=== PATIENT | female | born 1950 | race Caucasian/White ===

== ENCOUNTER 2017-11-18 15:16 | Inpatient (IN) | payer MEDICARE ==
[2017-11-18] MEDS ORDERED: Vancomycin(*) 1,500 MG in NS 0.9% 250 ML* 250 ML IVPB ONE (16:40)
--- NOTE | 2017-11-18 16:42 | ED ---
Lower Extremity - HPI Summary HPI Summary: This patient is a 67 year old F presenting to ED with a chief complaint of bilateral LE cellulitis since 11/10/17. The CC is described as intermittent burning and increased erythema when she left her house earlier today. The patient rates the pain 0/10 in severity. Symptoms aggravated by touch. Symptoms alleviated by nothing. Patient denies CP, SOB, and abdominal pain. The patient was given Bactrim (10 days) which did not alleviate her sx. She was also given Augmentin (10 days) which did help. She ended her rx last night and went back to her PCP, Dr. Kimball, today for renewal of Rx but she was told to go to the ED for abx via an IV. - History of Current Complaint Chief Complaint: EDExtremityLower Stated Complaint: CELLULITIS ON BOTH LEGS Time Seen by Provider: 11/18/17 16:12 Hx Obtained From: Patient Onset of Pain: Days Onset/Duration: Still Present Severity Currently: None Pain Intensity: 0 Pain Scale Used: 0-10 Numeric Timing: Constant, Lasting Days Location: Other - bilateral LE Character Of Pain: Burning Associated Signs And Symptoms: Positive: Swelling, Redness Aggravating Factor(s): Other - touch Alleviating Factor(s): Nothing - Allergies/Home Medications Allergies/Adverse Reactions: Allergies Allergy/AdvReac Type Severity Reaction Status Date / Time No Known Allergies Allergy Verified 11/21/15 14:34 Home Medications: Home Medications Gabapentin CAP(*) [Neurontin 100 mg CAP(*)] 100 mg PO TID 11/18/17 [History Confirmed 11/18/17] Meloxicam(NF) [Mobic(NF)] 15 mg PO DAILY MDD 15 mg 11/18/17 [History Confirmed 11/18/17] oxyCODONE SR TAB(*) [Oxycontin 20 mg (*)] 20 mg PO Q12HR PRN 11/18/17 [History Confirmed 11/18/17] PMH/Surg Hx/FS Hx/Imm Hx Endocrine/Hematology History: Reports: Hx Anticoagulant Therapy - Coumadin therapy, Hx Anemia Cardiovascular History: Denies: Hx Congestive Heart Failure Respiratory History: Reports: Hx Pulmonary Embolism GI History: Reports: Hx Gall Bladder Disease - Cholecystectomy, Other GI Disorders - VENTRAL HERNIA (REPAIRED), appendectomy History: Denies: Hx Renal Disease, Other Problems/Disorders Musculoskeletal History: Reports: Other Musculoskeletal History - R total knee replacement Denies: Hx Arthritis Sensory History: Reports: Hx Contacts or Glasses - to drive Opthamlomology History: Reports: Hx Contacts or Glasses - to drive - Cancer History Cancer Type, Location and Year: newly diagnosed uterine cancer Hx Chemotherapy: No Hx Radiation Therapy: Yes - HX STAGE 4 UTERINE CA 2015 - Surgical History Surgery Procedure, Year, and Place: Cholecystectomy. Appendectomy. VENTRAL HERNIA REPAIR x 2. 2010 - knee replacement Hx Anesthesia Reactions: No Infectious Disease History: No Infectious Disease History: Denies: Hx of Known/Suspected MRSA, Hx Shingles, Hx Tuberculosis, Hx Known/ Suspected VRE, Hx Known/Suspected VRSA, History Other Infectious Disease, Traveled Outside the [place] in Last 30 Days - Family History Known Family History: Positive: Cardiac Disease - Mother - Social History Alcohol Use: None Hx Substance Use: No Substance Use Type: Reports: None Hx Tobacco Use: No Smoking Status (MU): Never Smoked Tobacco Review of Systems Negative: Chest Pain Negative: Shortness Of Breath Negative: Abdominal Pain Positive: Edema - bilateral LE Positive: Other - cellulitis on bilateral LE, increased erythema since leaving her house today All Other Systems Reviewed And Are Negative: Yes Physical Exam - Summary Physical Exam Summary: Appearance: Morbid obesity, no pain distress Skin: warm, dry, excoriation of skin with redness Head/face: normal Eyes: EOMI, CASSI ENT: normal Neck: supple, non-tender Respiratory: CTA, breath sounds present Cardiovascular: RRR, pulses symmetrical Abdomen: non-tender, soft Bowel: present Musculoskeletal: strength/ROM intact, Bilateral pedal edema, mild tenderness on LE bilaterally, Hernia with some abrasion of the abdomen Neuro: normal, sensory motor intact, A&Ox3 Triage Information Reviewed: Yes Vital Signs On Initial Exam: Initial Vitals Temp Pulse Resp BP Pulse Ox 98.5 F 80 19 143/69 91 11/18/17 15:28 11/18/17 15:28 11/18/17 15:28 11/18/17 15:28 11/18/17 15:28 Vital Signs Reviewed: Yes Diagnostics - Vital Signs Vital Signs Temp Pulse Resp BP Pulse Ox 11/18/17 15:28 98.5 F 80 19 143/69 91 - Laboratory Result Diagrams: 11/18/17 17:14 Lab Statement: Any lab studies that have been ordered have been reviewed, and results considered in the medical decision making process. Lower Extremity Course/Dx - Course Assessment/Plan: This patient is a 67 year old F presenting to ED with a chief complaint of bilateral LE cellulitis since 11/10/17. Blood work/UA obtained. In the ED course, the patient was given Vancomycin, Motrin, and percocet. US refuses to take the LE venous doppler. The patient will be admitted to Dr. Weathers. Patient understands and agrees with this plan. - Diagnoses Differential Diagnosis/HQI/PQRI: Positive: Cellulitis - bilateral legs Provider Diagnoses: Bilateral lower leg cellulitis - Physician Notifications Discussed Care Of Patient With: Merline Weathers Time Discussed With Above Provider: 17:47 Instructed by Provider To: Other - Consulted Dr. Weathers who accepts the patient for admission. Discharge - Sign-Out/Discharge Documenting (check all that apply): Patient Departure - admit - Discharge Plan Condition: Stable Disposition: ADMITTED TO [facility] Referrals: Venancio Cesar MD [Primary Care Provider] - - Attestation Statements Document Initiated by Scribe: Yes Documenting Scribe: Malachi Dodson Provider For Whom Andreinaibe is Documenting (Include Credential): Van Whitman MD Scribe Attestation: Malachi Thrasher, scribed for Van Whitman MD on 11/18/17 at 5469.
[2017-11-18] MEDS ORDERED: Ibuprofen TAB* 800 MG PO ONE (17:25)
[2017-11-18] MEDS ORDERED: oxyCODONE/Acetamin 5/325 MG* TAB PO ONE (17:27)
[2017-11-18] MEDS ORDERED: oxyCODONE/Acetamin 5/325 MG* TAB ONE (17:29)
[2017-11-18 17:38] LABS: ABS Basophils 0.1 10^3/ul (0-0.2); ABS Eosinophils 0.1 10^3/ul (0-0.6); ABS Lymphocytes 1.3 10^3/ul (1.0-4.8); ABS Monocytes 0.6 10^3/ul (0-0.8); ABS Neutrophils 4.7 10^3/ul (1.5-7.7); ABS Nucleated RBC 0 10^3/ul; Eosinophil % 0.9 % (0-6); Hematocrit 39 % (35-47); Hemoglobin 12.5 g/dl (12.0-16.0); Lymphocyte % 19.6 % (25-47); Mean Corpuscular HGB Conc 32 g/dl (31-36); Mean Corpuscular Hemoglobin 31 pg (27-31); Mean Corpuscular Volume 97 fL (80-97); Mean Platelet Volume 6.6 um3 (7.4-10.4); Nucleated Red Blood Cells % 0; Platelet Count 282 10^3/ul (150-450); Red Blood Count 4.03 10^6/ul (4.00-5.40); Red Cell Distribution Width 18 % (10.5-15); White Blood Count 6.6 10^3/ul (3.5-10.8)
[2017-11-18 17:46] LABS: INR 0.98 (0.77-1.02)
[2017-11-18 18:00] LABS: EGFR Non-African American 100.3 (>60)
[2017-11-18] MEDS: oxyCODONE SR TAB(*) 20 MG TAB.SR PO PRN (20:47)
[2017-11-18] MEDS: ceFAZolin 1 GM in Dextrose (*) 1 GM/50 ML BAG IVPB SCH (20:47)
[2017-11-18] MEDS: Gabapentin CAP(*) 100 MG PO SCH (20:48)
[2017-11-18] MEDS: Heparin VIAL(*) 5000 UNITS/ML VIAL (FIVE THOUSAND) SUBCUT SCH (20:49)
[2017-11-18] MEDS ORDERED: HYDROmorphone INJ1* 1 MG/ML SYRINGE IV ONE (23:03)
--- NOTE | 2017-11-18 23:33 | HP ---
CC: Dr. Kimball * HISTORY AND PHYSICAL: DATE OF ADMISSION: 11/18/17 TIME OF EVALUATION: 6:30 p.m. PRIMARY CARE PROVIDER: Dr. Kimball. CHIEF COMPLAINT: "My doctor sent me for antibiotics." HISTORY OF PRESENT ILLNESS: Ms. Lynn is a 67-year-old lady with a past medical history of morbid obesity, PE after extensive abdominal surgery who was sent to the emergency room by her primary care provider due to worsening bilateral lower extremity cellulitis. The patient states that she was in her usual state of health until 3 weeks ago when she was referred to a tree surgeon helper. She states that when he cut her nails, he nicked her right third toe and she developed right lower extremity erythema. She states the next day she scratched her left leg and then developed erythema on that leg. She did not have any fever, but she did have some malaise and she was seen by her primary care provider and prescribed Bactrim. She states that she took it for a week with no significant improvement, so she returned for followup and was then prescribed Augmentin. She states that with Augmentin, she had less pain. The redness was subsiding and she felt she was improving. She developed some blisters with no purulence and states that she was taking great care of them at home keeping them clean and dry. She went for followup today with her primary care provider and she was under the impression she would get another prescription for another round of Augmentin and she felt the medication was working, but her primary care provider was concerned and sent her to the emergency room as she felt the patient required IV antibiotics. She denies any episodes of cellulitis in the past. As described above, there was no fever, no chills. Only some malaise in the beginning of her symptoms. There is no chest pain, palpitation, shortness of breath, nausea, vomiting, diarrhea, or urinary complaints. PAST MEDICAL HISTORY: 1. Morbid obesity with BMI of 48. 2. Complicated surgical history with an episode of small bowel obstruction in 2012 with exploratory laparotomy. 3. Ventral hernia repair. 4. Cholecystectomy. 5. Appendectomy. 6. Hospital course complicated by septic shock. 7. Respiratory failure. 8. Bilateral pulmonary embolus. 9. She had poor wound healing and required a wound VAC for the surgical wound. The patient denies history of hypertension, diabetes, or hyperlipidemia. MEDICATION LIST: 1. Gabapentin 100 mg p.o. t.i.d. 2. Meloxicam 15 mg p.o. daily. 3. OxyContin 10 mg p.o. q.12 hours p.r.n. pain. ALLERGIES: No known drug allergies. FAMILY HISTORY: Mother is alive and healthy. Father passed of heart failure. Sister had breast cancer. SOCIAL HISTORY: She denies tobacco, alcohol, or drug use. Surrogate decision maker is her daughter, Carmen Lynn, phone number is [phone]. REVIEW OF SYSTEMS: A 14-point review of systems was performed and all the pertinent negative and positive findings are in the HPI. PHYSICAL EXAMINATION GENERAL: The patient is a morbidly obese lady, sitting up in the ED stretcher, not in acute distress. VITAL SIGNS: Temperature 98.6, heart rate is 83, respiratory rate is 20, oxygen saturation 93% on room air, blood pressure 130/66. HEENT: Pupils are equal. Moist mucous membranes. CHEST: Breath sounds bilaterally with no added sounds, but exam is limited due to body habitus. CVS: Normal S1 and S2. Regular rate and rhythm. ABDOMEN: Morbidly obese. EXTREMITIES: The patient has significant bilateral lower extremity lymphedema with bilateral leg erythema, greater on the left leg. She has some blisters on the left leg. They appear to be drying at this time. Good pulses bilaterally. Her toenails also show onychomycosis. NEURO: She is alert, awake, oriented x3. Able to move all 4 extremities. LABORATORY AND IMAGING DATA: The patient had a CBC that showed WBC of 6.6, hemoglobin of 12.5, hematocrit of 39, platelets of 282 with 70% neutrophils. INR is 0.98. Chemistry showed a sodium of 139, potassium of 4.2, chloride of 102, bicarb of 31, BUN of 17, creatinine of 0.6, glucose of 84. Lactic acid of 1.1. Calcium of 9.2. LFTs were normal. The patient declined lower extremity Doppler in the emergency room, as she states she could not tolerate it due to pain. ASSESSMENT AND PLAN: Ms. Lynn is a 67-year-old lady with a past medical history of morbid obesity, postop pulmonary embolism, complex abdominal surgery for small bowel obstruction, and hernia repair complicated by wound requiring wound VAC in 2012 who presented to the emergency room, referred by her primary care provider due to failing outpatient treatment for bilateral lower extremity cellulitis. 1. Bilateral lower extremity cellulitis. The patient's infection is mildly purulent suggesting streptococcal etiology. She states that the lesions did not improve with Bactrim, but she saw some improvement with Augmentin. At this point, she is going to be admitted to the medical floor as she failed outpatient treatment and she will be started on cefazolin. Due to her size, I am going to give 1 g every 6 hours and request a consultation with Dr. Bautista. I will continue her usual pain medication. 2. DVT prophylaxis. The patient has a score of 7 on the DVT Prophylaxis Risk Assessment Guide and she will be started on subcutaneous heparin. SCDs are contraindicating in the setting of bilateral lower extremity cellulitis. 3. Code status is full. TIME SPENT: Approximately 50 minutes were spent with patient interview, medical records review, physical examination to complete this admission; more than half of this time was spent [id number] with the patient and coordination of care. [id number]/[facility] #: [id number] HEALTH SYSTEMKetty
[2017-11-19] MEDS ORDERED: HYDROmorphone INJ1* 1 MG/ML SYRINGE IV ONE (01:22)
[2017-11-19] MEDS ORDERED: HYDROmorphone INJ1* 1 MG/ML SYRINGE ONE (01:25)
[2017-11-19] MEDS: ceFAZolin 1 GM in Dextrose (*) 1 GM/50 ML BAG IVPB SCH ×4 (01:31→20:24)
[2017-11-19] MEDS: Heparin VIAL(*) 5000 UNITS/ML VIAL (FIVE THOUSAND) SUBCUT SCH ×3 (06:16→20:28)
[2017-11-19 07:47] LABS: ABS Basophils 0 10^3/ul (0-0.2); ABS Eosinophils 0.1 10^3/ul (0-0.6); ABS Monocytes 0.5 10^3/ul (0-0.8); ABS Neutrophils 4.5 10^3/ul (1.5-7.7); ABS Nucleated RBC 0 10^3/ul; Eosinophil % 1.8 % (0-6); Hematocrit 37 % (35-47); Hemoglobin 12.1 g/dl (12.0-16.0); Lymphocyte % 16.3 % (25-47); Mean Corpuscular HGB Conc 32 g/dl (31-36); Mean Corpuscular Hemoglobin 31 pg (27-31); Mean Corpuscular Volume 97 fL (80-97); Mean Platelet Volume 6.5 um3 (7.4-10.4); Nucleated Red Blood Cells % 0; Platelet Count 267 10^3/ul (150-450); Red Blood Count 3.86 10^6/ul (4.00-5.40); Red Cell Distribution Width 18 % (10.5-15); White Blood Count 6.2 10^3/ul (3.5-10.8)
[2017-11-19 08:09] LABS: EGFR Non-African American 96.6 (>60)
[2017-11-19] MEDS: Gabapentin CAP(*) 100 MG PO SCH ×3 (08:09→20:26)
[2017-11-19] MEDS: oxyCODONE SR TAB(*) 20 MG TAB.SR PO PRN ×2 (08:14→20:27)
[2017-11-19] MEDS: MELOXICAM 15 MG PO SCH ×2 (13:29→14:08)
[2017-11-19] MEDS ORDERED: Gabapentin CAP(*) 100 MG PO ONE (15:05)
[2017-11-19] MEDS: Acetaminophen TAB* 325 MG PO PRN ×2 (15:51→23:13)
--- NOTE | 2017-11-19 15:56 | PN ---
Subjective Date of Service: 11/19/17 Interval History: HOSPITALIST PROGRESS NOTE Patient seen and examined at bedside. Care reviewed and d/w Adriana Price RN. She feels a little better today. Bilateral LE erythema is less intense, LLE weeping is improving, but she states the burning pain is still severe. Family History: Unchanged from Admission Social History: Unchanged from Admission Past Medical History: Unchanged from Admission Objective Active Medications: Acetaminophen (Tylenol Tab*) 650 mg PO Q6H PRN PRN Reason: pain/fever Gabapentin (Neurontin Cap(*)) 200 mg PO TID [facility] Heparin Sodium (Porcine) (Heparin Vial(*)) 5,000 units SUBCUT Q8HR [facility] Last Admin: 11/19/17 14:07 Dose: 5,000 units Cefazolin Sodium/Dextrose (Kefzol 1 Gm In Dextrose Duplex (*)) 1 gm in 50 mls @ 200 mls/hr IVPB Q6H [facility] Last Admin: 11/19/17 14:06 Dose: 200 mls/hr Meloxicam (Mobic(Nf)) 15 mg PO DAILY [facility] Last Admin: 11/19/17 14:08 Dose: 15 mg Oxycodone HCl (Oxycontin(*)) 20 mg PO Q12HR PRN PRN Reason: PAIN - UNCONTROLLED Last Admin: 11/19/17 08:14 Dose: 20 mg Vital Signs - 8 hr 11/19/17 11/19/17 11/19/17 08:00 08:09 08:14 Temperature Pulse Rate Respiratory 22 22 22 Rate Blood Pressure (mmHg) O2 Sat by Pulse Oximetry 11/19/17 11/19/17 11/19/17 10:09 12:29 14:06 Temperature 98.4 F Pulse Rate 79 Respiratory 19 18 18 Rate Blood Pressure 142/60 (mmHg) O2 Sat by Pulse 91 Oximetry Oxygen Devices in Use Now: None Appearance: Morbid obese lady sitting up in bed in NAD Eyes: No Scleral Icterus Ears/Nose/Mouth/Throat: Mucous Membranes Moist Neck: Trachea Midline Respiratory: Symmetrical Chest Expansion and Respiratory Effort, Clear to Auscultation Cardiovascular: RRR - Normal S1 and S2 Extremities: - - Bilateral LE erythema from knee to ankles, L>R, with blisters and clear drainage from the left leg. Toenails - onychomycosis Neurological: Alert and Oriented x 3, NL Muscle Strength and Tone Result Diagrams: 11/19/17 07:25 11/19/17 07:25 Assess/Plan/Problems-Billing Assessment: Mrs Lynn is a 67yo F with PMH of morbid obesity with a BMI of 60, SBO in 2013 requiring ex lap with ventral hernia repair, cholecystectomy, appendectomy , complicated by septic shock, respiratory failure, PE, abdominal wound; who presented with bilateral LE cellulitis failed outpatient treatment. - Patient Problems (1) Bilateral lower leg cellulitis Comment: - Failed outpatient treatment with Bactrim and Augmentin. - Seems to be responding to Cefazolin. - ID consult requested. - Suspect streptococcal infection. (2) DVT prophylaxis Comment: - SQ heparin. (3) Full code status Status and Disposition: Inpatient.
--- NOTE | 2017-11-19 20:42 | CONS ---
CONSULTATION REPORT: DATE OF CONSULT: 11/19/17 REQUESTING PHYSICIAN: Dr. Gallardo. CONSULTING SERVICE: Infectious Disease. REASON FOR CONSULT: Cellulitis. IMPRESSION: 1. Left leg cellulitis and probably a touch of it on the right as well in the setting of lymphedema though this does indeed appear to be cellulitis. There is some superficial bulla formation in the left posterior leg, most likely streptococcal. 2. Super morbid obesity. RECOMMENDATION: Agree with cefazolin 1 g IV every 6 hours. Elevation of the legs when she is in bed and eventually, we will switch her over to Keflex 500 mg 3 times a day to finish a 10-day course when she has significantly turned the corner. HISTORY OF PRESENT ILLNESS: This is a 67-year-old woman with obesity, recent left leg cellulitis developed and then she developed some redness on the right leg. She was taking Bactrim as an outpatient, then Augmentin, and was starting to have some improvement, then had worsening pain, saw Dr. Kimball, who recommended she come in to the ER yesterday. She did that, she was started on Ancef by Dr. Gallardo. She thinks the redness has faded a little bit this morning. There is still some swelling. She had some posterior left leg pain overnight. A wound culture on the left leg was taken. The Gram stain shows epithelial cells, no neutrophils or organisms. The culture is pending. She has had no fever here. PAST MEDICAL HISTORY: 1. Super morbid obesity. 2. History of pulmonary embolism. 3. Small bowel obstruction in 2012, status post exploratory laparotomy. 4. Status post ventral hernia repair. 5. Status post cholecystectomy. 6. Status post appendectomy. MEDICATIONS: 1. Ancef 1 g IV every 6 hours. 2. Tylenol. 3. Gabapentin. 4. Heparin subcutaneous injection. 5. Meloxicam. 6. Oxycodone. ALLERGIES: No known drug allergies. FAMILY HISTORY: No recurrent infections. SOCIAL HISTORY: She lives in [place]. She is a nonsmoker. No injection drugs. REVIEW OF SYSTEMS: All negative to a 14-point review of systems except as noted above in the history of present illness. PHYSICAL EXAM: Vital Signs: Temperature is 37, heart rate 90, respiratory rate 20, blood pressure 120/40, oxygen saturation 94% on room air. In general, she is awake and not in distress. Neurologic: She is oriented x3. Follows all commands. HEENT: There is no conjunctival hemorrhage. Oropharynx is without lesions. Neck is supple without mass. Heart has regular rate and rhythm without murmurs, rubs, or gallops. Lungs are clear to auscultation bilaterally. Abdomen: Soft, nontender. There are bowel sounds present. Skin : Left lower extremity, there is diffuse erythema, which is nonblanching. There is some posterior sloughing and superficial bulla. Right anterior lateral leg, there is a patch of erythema. There is no fluctuance or crepitus. Musculoskeletal: There is no spine tenderness to palpation. LABORATORY DATA: White blood cell count 6, hemoglobin 12, platelets 267. Creatinine is 0.6. Please see impressions and recommendations as outlined above. Thanks for asking me to see Ms. Lynn in consultation. [id number]/[facility] #: [id number] MTDD
[2017-11-20] MEDS: ceFAZolin 1 GM in Dextrose (*) 1 GM/50 ML BAG IVPB SCH ×4 (02:18→20:00)
[2017-11-20] MEDS: Heparin VIAL(*) 5000 UNITS/ML VIAL (FIVE THOUSAND) SUBCUT SCH ×3 (05:58→21:02)
[2017-11-20] MEDS: Gabapentin CAP(*) 100 MG PO SCH ×3 (08:02→20:01)
[2017-11-20] MEDS: MELOXICAM 15 MG PO SCH (08:14)
[2017-11-20] MEDS: oxyCODONE SR TAB(*) 20 MG TAB.SR PO PRN (12:08)
--- NOTE | 2017-11-20 13:48 | PN ---
Subjective Date of Service: 11/20/17 Interval History: HOSPITALIST PROGRESS NOTE Patient seen and examined at bedside. She feels better today, pain is better controlled. LE erythema is improving, but RLE is still "weepy". Family History: Unchanged from Admission Social History: Unchanged from Admission Past Medical History: Unchanged from Admission Objective Active Medications: Acetaminophen (Tylenol Tab*) 650 mg PO Q6H PRN PRN Reason: pain/fever Last Admin: 11/19/17 23:13 Dose: 650 mg Gabapentin (Neurontin Cap(*)) 200 mg PO TID [facility] Last Admin: 11/20/17 08:02 Dose: 200 mg Heparin Sodium (Porcine) (Heparin Vial(*)) 5,000 units SUBCUT Q8HR [facility] Last Admin: 11/20/17 05:58 Dose: 5,000 units Cefazolin Sodium/Dextrose (Kefzol 1 Gm In Dextrose Duplex (*)) 1 gm in 50 mls @ 200 mls/hr IVPB Q6H [facility] Last Admin: 11/20/17 08:01 Dose: 200 mls/hr Meloxicam (Mobic(Nf)) 15 mg PO DAILY [facility] Last Admin: 11/20/17 08:14 Dose: Not Given Oxycodone HCl (Oxycontin(*)) 20 mg PO Q12HR PRN PRN Reason: PAIN - UNCONTROLLED Last Admin: 11/20/17 12:08 Dose: 20 mg Vital Signs - 8 hr 11/20/17 11/20/17 11/20/17 07:50 08:00 08:02 Temperature 97.7 F Pulse Rate 74 Respiratory 20 18 16 Rate Blood Pressure 126/62 (mmHg) O2 Sat by Pulse 93 Oximetry 11/20/17 11/20/17 11/20/17 11:25 12:08 12:48 Temperature 97.9 F Pulse Rate 73 Respiratory 16 18 18 Rate Blood Pressure 143/70 (mmHg) O2 Sat by Pulse 90 Oximetry Oxygen Devices in Use Now: None Appearance: Pleasant morbid obese lady lying in bed in NAD. Eyes: No Scleral Icterus Ears/Nose/Mouth/Throat: Mucous Membranes Moist Extremities: - - Bilateral LE erythema is less intense, RLE is much improved, LLE still has some blisters with drainage of clear fluid Neurological: Alert and Oriented x 3, NL Muscle Strength and Tone Result Diagrams: 11/19/17 07:25 11/19/17 07:25 Assess/Plan/Problems-Billing Assessment: Mrs Lynn is a 67yo F with PMH of morbid obesity with a BMI of 60, SBO in 2013 requiring ex lap with ventral hernia repair, cholecystectomy, appendectomy , complicated by septic shock, respiratory failure, PE, abdominal wound; who presented with bilateral LE cellulitis failed outpatient treatment. - Patient Problems (1) Bilateral lower leg cellulitis Comment: - Failed outpatient treatment with Bactrim and Augmentin. - Seems to be responding to Cefazolin. - ID consult appreciated. - Suspect streptococcal infection. (2) DVT prophylaxis Comment: - SQ heparin. (3) Full code status Status and Disposition: Inpatient.
--- NOTE | 2017-11-20 17:00 | CONS ---
CONSULTATION REPORT: DATE OF CONSULT: 11/20/17 ATTENDING PHYSICIAN: Dr. Gallardo. CONSULTING PHYSICIAN: Dr. Ren Harrison. REASON FOR CONSULT: Question of borderline personality disorder. 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 The question was raised whether perhaps the patient has a personality disorder or whether she would benefit from mood stabilizer therapy to improve mood and interpersonal functioning. The story is that on the day prior to consultation, the patient revealed to staff that she had several tablets of the nonsteroidal anti-inflammatory, meloxicam in her purse. Per hospital policy, her nurse requested that the medications be taken to pharmacy to be verified. The patient refused to adhere to this request and started getting upset. At one point, the patient claims that she was threatened with law enforcement interaction and became very upset. A series of staff members attempted to intervene to get her to calm down. At one point, the patient's friend, a woman named Arline, who was present, gathered the pills and took them to the patient' s home. On the date of my evaluation, I spoke with the currently assigned nursing staff, who indicate that Ms. Lynn has been calm and cooperative throughout today. She has been adhering with treatment as recommended. When I meet with the patient, she is similarly calm and cooperative, but is quite upset about her interaction with staff 1 day prior. She feels that it was not the staff's business what pills she had in her purse and she denies the risks associated with this, such as the possibility that another patient may receive them mistakenly. I do see some evidence of splitting on her part, given the fact that she has very negative things to say about nursing staff the day prior whereas she appears overly complimentary to her providers today. I did screen the patient for primary mental illness and she denies symptoms of depression, figueroa, PTSD, or psychosis. Mostly, the patient feels that she was disrespected , but seems to have little insight into the way that she was behaving towards staff. PAST PSYCHIATRIC HISTORY: The patient denies any prior history of psychiatric hospitalization. She denies any history of suicidality, any history of violence towards others. She denies any history of traumatic brain injury. She denies any history of abuse, neglect, or victimization from trauma. SUBSTANCE ABUSE HISTORY: The patient denies history of tobacco, alcohol, or illicit drug use and has never been to rehab. PAST MEDICAL HISTORY: Significant for morbid obesity, history of small bowel obstruction in 2013 with exploratory laparotomy, ventral hernia repair, cholecystectomy, appendectomy, history of septic shock, history of respiratory failure, bilateral pulmonary embolus. MEDICATIONS: Outpatient medications include: 1. Gabapentin 100 mg 3 times daily. 2. Meloxicam 15 mg p.o. daily. 3. OxyContin 10 mg every 12 hours as a p.r.n. for pain. ALLERGIES: She has no known drug allergies. FAMILY HISTORY: The patient denies any history of mental illness or suicide in her family. SOCIAL HISTORY: The patient was born and raised in the [facility] near the [facility]. She moved to the [facility] approximately 20 years ago following her divorce with her ex- and has never been remarried. She does have 3 children, 2 of which who live locally and 1 of whom lives in [place], [place]. She states that she is close with her children. Currently, she is living alone in an apartment in [place], [place]. 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 The patient was never in the . She denies having any history of legal problems. She is spiritual and jain, identifying as Tenriism. MENTAL STATUS EXAM: The patient is an extremely obese white female, who is dressed in a large flowing patient gown, sitting at the side of her bed close to her lunch tray. She is calm, cooperative, makes good eye contact. Speech has a normal rate, tone, and volume with the exception of elevating her voice at times when discussing emotional material. Mood would appear to be euthymic with a full to expansive affect. Thought process is linear and goal directed. Thought content is significant for her upset over the way that she feels she was treated 1 day prior. She denies suicidal or homicidal ideations. She denies auditory or visual hallucinations. Insight and judgment appear to be fair given her willingness to receive treatment for her medical issues. Cognitively, she is awake and alert with what would appear to be an average intellect. DIAGNOSES: Columbia I: Deferred. Columbia II: Deferred. 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 The primary team is wondering whether the patient may have an undiagnosed personality disorder or whether she may benefit from mood stabilizer treatment. At this time, I do not feel comfortable diagnosing the patient with a character disorder. These disorders tend to be multifactorial and based on multiple dimensions of personality, as seen in multiple settings. We typically make such diagnoses longitudinally after getting to know a patient. I certainly see evidence of splitting, given the fact that she deems her current nurse as all good, whereas her nurse from yesterday was seen as all bad. This is characteristic of borderline personality pathology. Nonetheless, I do not see any rationale for diagnosis or medications at this time. I think it would benefit the patient to conclude her inpatient treatment when it is medically safe to do so and be discharged back to the outpatient setting. Psychiatry is signing off at this time; however, we can certainly be reconsulted in the event of any significant change in the patient's presentation. Thank you for the interesting consult. [id number]/SHINE #: [id number] EDWARDO
[2017-11-20] MEDS: Acetaminophen TAB* 325 MG PO PRN (20:01)
[2017-11-21] MEDS: ceFAZolin 1 GM in Dextrose (*) 1 GM/50 ML BAG IVPB SCH ×2 (01:35→08:11)
[2017-11-21] MEDS: Heparin VIAL(*) 5000 UNITS/ML VIAL (FIVE THOUSAND) SUBCUT SCH (05:43)
[2017-11-21 08:01] VITALS: BP 140/67
[2017-11-21] MEDS: oxyCODONE SR TAB(*) 20 MG TAB.SR PO PRN (08:09)
[2017-11-21] MEDS: Gabapentin CAP(*) 100 MG PO SCH (08:10)
[2017-11-21] MEDS: MELOXICAM 15 MG PO SCH (08:18)
[2017-11-21] MEDS ORDERED: Pneumococcal *Vac Polyvalent 0.5 ML VIAL IM ONE (09:00)
[2017-11-21] MEDS ORDERED: Cephalexin CAP* 500 MG PO ONE (11:35)
--- NOTE | 2017-11-22 23:50 | DS ---
CC: Dr. Kimball. * DISCHARGE SUMMARY: DATE OF ADMISSION: 11/18/17 DATE OF DISCHARGE: 11/21/17 PRIMARY CARE PROVIDER: Dr. Kimball. DISCHARGE DIAGNOSES: 1. Bilateral lower extremity cellulitis, failed outpatient treatment, likely streptococcal infection. 2. Bilateral lower extremity lymphedema. 3. Hypoxia, likely secondary to obstructive sleep apnea and obesity hypoventilation syndrome. 4. Morbid obesity with a BMI of 60. SECONDARY DIAGNOSES: 1. Complicated surgical history with an episode of small bowel obstruction in 2012 requiring exploratory laparotomy. 2. Ventral hernia repair. 3. Cholecystectomy. 4. Appendectomy complicated by septic shock. 5. Respiratory failure. 6. Pulmonary embolism. 7. Poor wound healing requiring wound VAC. MEDICATION LIST: 1. Oxycodone SR 10 mg p.o. q.12 hours p.r.n. pain. 2. Meloxicam 15 mg p.o. daily. 3. Gabapentin 100 mg p.o. t.i.d. 4. Hydrocortisone 1% cream topical b.i.d. to left hand rash. 5. Cephalexin 500 mg p.o. q.8 hours for 14 days. HOSPITAL COURSE: Mrs. Lynn is a 67-year-old lady with a past medical history as stated above that presents to the emergency room after failing outpatient therapy for bilateral lower extremity cellulitis. The patient states that she had developed bilateral lower extremity edema and erythema, was seen by her primary care provider and prescribed initially Bactrim followed by Augmentin with no significant improvement and she was referred to the emergency room for further evaluation. For details about her presentation, I refer you to her history and physical. The patient was started on cefazolin and topical care with daily dressing changes of Vaseline gauze and dry gauze and she had significant improvement on her lesions. She was seen in consultation by Infectious Disease, Dr. Bautista who recommended continuation of treatment with oral cephalexin as outpatient. I believe the patient would also benefit of evaluation by Lymphedema Clinic. The patient was also noted to have periods of apnea while napping. She had an overnight oximetry that showed continuos period of 12 minutes with saturation less than 89% She is being discharged home with oxygen 2 L per minute at night but she would benefit of further sleep studies. She states that in the past she could not tolerate CPAP but she may be a candidate for nasal CPAP. I believe her hypoxia is multifactorial in the setting of morbid obesity with the BMI of 60 and likely a combination of the obstructive sleep apnea and obesity hypoventilation syndrome. DIET: Regular diet. ACTIVITY: As tolerated. DISPOSITION: To home. STATUS WHILE IN THE HOSPITAL: Inpatient. Please keep in mind this is a summarized version of this patient's hospital stay. If you need more information, please feel free to call me at [phone] or please obtain full medical records. TIME SPENT: Approximately 45 minutes were spent to complete this discharge. [id number]/CPS #: [id number] EDWARDO
== END 2017-11-21 13:45 | disposition home or self-care (01) | DRG 603 ==
LOC: ED 15:16 → MED 18:53
PROVIDERS: ADMIT Internal Medicine; ATTEND Internal Medicine
DX: L03.116 Cellulitis of left lower limb (principal); Z68.44 Body mass index [BMI] 60.0-69.9, adult; E66.01 Morbid (severe) obesity due to excess calories; L03.115 Cellulitis of right lower limb; B96.5 Pseudomonas (aeruginosa) (mallei) (pseudomallei) as the cause of diseases classified elsewhere; B35.1 Tinea unguium; Z86.711 Personal history of pulmonary embolism; Z79.01 Long term (current) use of anticoagulants; Z79.1 Long term (current) use of non-steroidal anti-inflammatories (NSAID); Z79.891 Long term (current) use of opiate analgesic; Z79.899 Other long term (current) drug therapy; Z82.49 Family history of ischemic heart disease and other diseases of the circulatory system; Z80.3 Family history of malignant neoplasm of breast
CPT/HCPCS: 36415; 80048; 80053; 83605; 85025; 85610; 85730; 87040; 87070; 87077; 87186; 87205; 90732; 94760; 99285; A9270-GY; J0690; J1170; J1644; J3370

== ENCOUNTER 2018-06-11 11:25 | Inpatient (IN) | payer MEDICARE ==
--- NOTE | 2018-06-11 13:11 | ED ---
Complex/Multi-Sys Presentation - HPI Summary HPI Summary: Patient is a 67 y/o F presenting to ED with complaints of cellulitis of both legs. Provider in room at 1301. Patient had previously been admitted to ED for cellulitis, was given IV therapy. Patient tested positive for Pseudomonas Aeruginosa Corynebacterium Urealyticum at the time. Patient claims that cellulitis took 3 months to heal. At present, patient presents with cellulitis of both legs with left being worse. Patient states that, two days ago, she accidentally backed up into her cat tower and then stumbled forward and struck her shins against her walker, injuring them. Patient called pharmacist at [facility], pharmacist recommended that the patient try New-Skin for her legs. Patient applied the New- Skin to her legs and states she experienced a "chemical burn" and states that her legs "burn like the devil". Patient reports left leg has been weeping at the back. She reports weeping began two days ago when she used New-Skin spray. Patient reports pain and burning, noting that Sx have worsened since onset. Patient took Tylenol at 0400 today, 06/11/18, reports not having taken any of her other medications this morning as she was busy trying to arrange hospital transport. She also reports lower back pain and dysuria. Headache, dizziness, chest pain, SOB, fever, cough , abdominal pain, N/V/D, SI/HI are all denied. No PMHx of diabetes, SD. PMHx of restless leg syndrome, DVT around 15 years ago , no PE reported. Patient takes ASA daily, not on blood thinners. Patient claims that she has hairline fracture in right foot, patient is walking with a walker as a result. She reports no pain in right foot in the room. Patient reports that she was diagnosed with hairline fracture 8-10 months ago. On triage , pain is rated 10/10. Nothing is noted to aggravate Sx. Home medications and allergies are reviewed. - History Of Current Complaint Chief Complaint: EDRashSkinAbscess Hx Obtained From: Patient Onset/Duration: Lasting Days - two days, Still Present, Worse Since Timing: Constant, Days - two days Severity Currently: Severe Location: Pain At: - legs bilaterally Aggravating Factor(s): nothing Alleviating Factor(s): nothing Associated Signs And Symptoms: Positive: Back Pain - lower, Dysuria, Other - cellulitis bilateral at legs, no HI/SI. Negative: Dizziness, Headache, SOB, Cough, Chest Pain, Nausea, Vomiting, Diarrhea, Abdominal Pain, Fever - Allergies/Home Medications Allergies/Adverse Reactions: Allergies Allergy/AdvReac Type Severity Reaction Status Date / Time No Known Allergies Allergy Verified 06/11/18 11:32 PMH/Surg Hx/FS Hx/Imm Hx Endocrine/Hematology History: Reports: Hx Anticoagulant Therapy - Coumadin therapy, Hx Anemia Cardiovascular History: Denies: Hx Congestive Heart Failure Respiratory History: Reports: Hx Pulmonary Embolism GI History: Reports: Hx Gall Bladder Disease - Cholecystectomy, Other GI Disorders - VENTRAL HERNIA (REPAIRED), appendectomy History: Denies: Hx Renal Disease, Other Problems/Disorders Musculoskeletal History: Reports: Other Musculoskeletal History - R total knee replacement Denies: Hx Arthritis Sensory History: Reports: Hx Contacts or Glasses Denies: Hx Hearing Aid Opthamlomology History: Reports: Hx Contacts or Glasses - Cancer History Cancer Type, Location and Year: newly diagnosed uterine cancer Hx Chemotherapy: No Hx Radiation Therapy: Yes - HX STAGE 4 UTERINE CA 2015 - Surgical History Surgery Procedure, Year, and Place: Cholecystectomy. Appendectomy. VENTRAL HERNIA REPAIR x 2. 2010 - knee replacement Hx Anesthesia Reactions: No Infectious Disease History: No Infectious Disease History: Denies: Hx of Known/Suspected MRSA, Hx Shingles, Hx Tuberculosis, Hx Known/ Suspected VRE, Hx Known/Suspected VRSA, History Other Infectious Disease, Traveled Outside the [place] in Last 30 Days - Family History Known Family History: Positive: Cardiac Disease - Mother - Social History Alcohol Use: Rare Hx Substance Use: No Substance Use Type: Reports: None Hx Tobacco Use: No Smoking Status (MU): Never Smoked Tobacco Review of Systems Negative: Fever Negative: Chest Pain Negative: Shortness Of Breath, Cough Negative: Abdominal Pain, Vomiting, Diarrhea, Nausea Positive: dysuria Musculoskeletal: Other - POSITIVE - LOWER BACK PAIN Skin: Other - POSITIVE - CELLULITIS OF BOTH LEGS Neurological: Other - NEGATIVE - DIZZINESS Negative: Headache Psychological: Other - NEGATIVE - SI/HI All Other Systems Reviewed And Are Negative: Yes Physical Exam - Summary Physical Exam Summary: Appearance: Ill-appearing, severe pain distress, well-nourished Skin: Warm, color reflects adequate perfusion, dry; patient has chronic appearing redness at legs from toes to knees bilaterally, acute on chronic redness, left worse than right, 2 cm open area at left posterior ankle Head: Normal Head/Face inspection, atraumatic Eyes: Conjunctiva clear ENT: Normal inspection Neck: Supple, no nodes, no JVD Respiratory: Lungs clear, normal breath sounds, no respiratory distress Cardio: RRR, No murmur, pulses normal, brisk capillary refill Abdomen: Soft, nontender Bowel sounds: Present Musculoskeletal: Strength Intact/ROM intact, no calf tenderness, no edema. Psychological: Normal Neuro: Alert, muscle tone normal, no focal deficit Triage Information Reviewed: Yes Vital Signs On Initial Exam: Initial Vitals Temp Pulse Resp BP Pulse Ox 99.3 F 87 16 149/90 93 06/11/18 11:28 06/11/18 11:28 06/11/18 11:28 06/11/18 11:28 06/11/18 11:28 Vital Signs Reviewed: Yes Diagnostics - Vital Signs Vital Signs Temp Pulse Resp BP Pulse Ox 06/11/18 11:28 99.3 F 87 16 149/90 93 - Laboratory Result Diagrams: 06/11/18 13:55 06/11/18 13:57 Lab Statement: Any lab studies that have been ordered have been reviewed, and results considered in the medical decision making process. Re-Evaluation - Re-Evaluation First Eval Re-Evaluation Time: 15:25 Comment: Patient has refused US, patient to receive US in the future when patient is more comfortable. Complex Multi-Symp Course/Dx Course Of Treatment: Patient is a 67 y/o F presenting to ED with complaints of cellulitis of both legs. Provider in room at 1301. Patient had previously been admitted to ED 11/18/17 for cellulitis, was given IV therapy. Patient tested positive for Pseudomonas Aeruginosa Corynebacterium Urealyticum at the time. Patient claims that cellulitis took 3 months to heal. At present, patient presents with cellulitis of both legs with left being worse. Patient states that, two days ago, she accidentally backed up into her cat tower and then stumbled forward and struck her shins against her walker, injuring them. Patient called pharmacist at [facility], pharmacist recommended that the patient try New-Skin for her legs. Patient applied the New-Skin to her legs and states she experienced a "chemical burn" and states that her legs "burn like the devil". Patient reports left leg has been weeping at the back. She reports weeping began two days ago when she used New-Skin spray. Patient reports pain and burning, noting that Sx have worsened since onset. Patient took Tylenol at 0400 today, 06/11/18, reports not having taken any of her other medications this morning as she was busy trying to arrange hospital transport. She also reports lower back pain and dysuria. Headache, dizziness, chest pain, SOB, fever, cough , abdominal pain, N/V/D, SI/HI are all denied. No PMHx of diabetes, SD. PMHx of restless leg syndrome, DVT around 15 years ago, no PE reported. Patient takes ASA daily, not on blood thinners. Patient claims that she has hairline fracture in right foot, patient is walking with a walker as a result. She reports no pain in right foot in the room. Patient reports that she was diagnosed with hairline fracture 8-10 months ago. Patient has severe pain distress, is ill-appearing. Patient has chronic appearing redness at legs from toes to knees bilaterally, acute on chronic redness, left worse than right, 2 cm open area at left posterior ankle. Blood cultures obtained. Labs showed RDW 16, MPV 6.5, BUN/creatinine ratio 34.6, alk phos 109, CRP 17.41, albumin/ globulin ratio 0.9. UA was negative. During ED course, patient received oxycotin 20 mg PO ONCE ONE, Mobic 15 mg PO ONCE ONE, dilaudid 1 mg IV ED ONCE ONE, Neurontin 100 mg PO ONCE ONE. Patient's case was discussed with Dr. Weathers at 1530, Dr. Weathers accepts for admission. Patient is agreeable with this. - Diagnoses Provider Diagnoses: Cellulitis of both lower extremities, Wound of left leg, Dysuria, Morbidly obese - Physician Notifications Discussed Care Of Patient With: Merline Weathers Time Discussed With Above Provider: 15:30 Instructed by Provider To: Other - Patient's case was discussed with Dr. Weathers at 1530, Dr. Weathers accepts for admission. Discharge - Sign-Out/Discharge Documenting (check all that apply): Patient Departure - admit All imaging exams completed and their final reports reviewed: No Studies Patient Received Moderate/Deep Sedation with Procedure: No - Discharge Plan Condition: Good Disposition: ADMITTED TO [facility] - Attestation Statements Document Initiated by Scribe: Yes Documenting Scribe: BERNA TSE Provider For Whom Scribe is Documenting (Include Credential): JONATHAN MEDEIROS MD Scribe Attestation: BERNA Thrasher, scribed for JONATHAN MEDEIROS MD on 06/12/18 at 0135. Status of Scribe Document: Ready
[2018-06-11] MEDS ORDERED: oxyCODONE SR TAB(*) 20 MG TAB.SR PO ONE (13:13)
[2018-06-11] MEDS ORDERED: Gabapentin CAP(*) 100 MG PO ONE (13:15)
[2018-06-11 13:48] LABS: Urine Appearance Clear; Urine Bilirubin Negative (Negative); Urine Blood Negative (Negative); Urine Color Yellow; Urine Glucose Negative (Negative); Urine Ketones Negative (Negative); Urine Nitrite Negative (Negative); Urine Protein Negative (Negative); Urine Specific Gravity 1.033 (1.010-1.030); Urine Urobilinogen Negative (Negative)
[2018-06-11 14:14] LABS: ABS Basophils 0 10^3/ul (0-0.2); ABS Eosinophils 0 10^3/ul (0-0.6); ABS Lymphocytes 1.4 10^3/ul (1.0-4.8); ABS Monocytes 0.5 10^3/ul (0-0.8); ABS Neutrophils 5.4 10^3/ul (1.5-7.7); ABS Nucleated RBC 0 10^3/ul; Eosinophil % 0.6 %; Hematocrit 38 % (33-41); Hemoglobin 12.4 g/dL (12.0-16.0); Lymphocyte % 18.6 %; Mean Corpuscular HGB Conc 33 g/dL (31-36); Mean Corpuscular Hemoglobin 30 pg (27-31); Mean Corpuscular Volume 91 fL (80-97); Mean Platelet Volume 6.5 fL (7.4-10.4); Nucleated Red Blood Cells % 0; Platelet Count 295 10^3/uL (150-450); Red Blood Count 4.16 10^6 /uL (3.70-4.87); Red Cell Distribution Width 16 % (10.5-15); White Blood Count 7.3 10^3/uL (3.5-10.8)
[2018-06-11 14:21] LABS: INR 1.02 (0.77-1.02)
[2018-06-11 14:30] LABS: Albumin 3.5 g/dL (3.2-5.2); Albumin/Globulin Ratio 0.9 (1-3); BUN/Creatinine Ratio 34.6 (8-20); C Reactive Protein 17.41 mg/L (<8.01); Calcium 8.9 mg/dL (8.6-10.3); EGFR African American 143.2 (>60); EGFR Non-African American 118.3 (>60); Globulin 3.9 g/dL (2-4); Potassium 4.2 mmol/L (3.5-5.0); Total Bilirubin 0.3 mg/dL (0.2-1.0); Total Protein 7.4 g/dL (6.4-8.9)
[2018-06-11] MEDS ORDERED: HYDROmorphone INJ1* 1 MG/ML SYRINGE IV ONE (15:35)
[2018-06-11] MEDS ORDERED: Meloxicam(NF) 7.5 MG TAB PO ONE (16:00)
[2018-06-11] MEDS ORDERED: Ondansetron INJ* 2 MG/ML VIAL IV PRN (16:15)
[2018-06-11] MEDS ORDERED: oxyCODONE SR TAB(*) 20 MG TAB.SR PO PRN (16:29)
[2018-06-11] MEDS ORDERED: Clindamycin CAP* 150 MG PO SCH (18:00)
[2018-06-11] MEDS: HYDROmorphone INJ1* 1 MG/ML SYRINGE IV SLOW PU PRN (18:28)
[2018-06-11] MEDS: Acetaminophen TAB* 325 MG PO PRN (18:34)
[2018-06-11] MEDS: Enoxaparin(*) 40 MG/0.4 ML SYR SUBCUT SCH (18:34)
--- NOTE | 2018-06-11 18:35 | HP ---
CC: Dr. Kimball; Dr. Suh * ADMISSION HISTORY AND PHYSICAL: DATE OF ADMISSION: 06/11/18 PRIMARY CARE PROVIDER: Dr. Kimball, but is being transferred to Dr. Suh. ATTENDING PHYSICIAN: Dr. Merline Gallardo.* (DICTATED BY ENIO REHMAN) CHIEF COMPLAINT: Left lower extremity pain, swelling and redness x2 days. HISTORY OF PRESENT ILLNESS: Ms. Lynn is a 67-year-old female with a past medical history significant for morbid obesity, lower extremity lymphedema, pulmonary embolism and obstructive sleep apnea, who presents to the emergency department after 2 days ago she was in her normal state of health with good control of her lower extremity lymphedema when her cat tree fell and hit the back of her leg, which then knocked the front of her leg into her walker creating 2 open areas. The patient had immediate pain, called [facility] and was recommended to apply Nu Skin to the area; however, when the patient applied Nu Skin to the area, she had an immediate increase in her pain with exfoliation and blistering of the area. The patient states that she has been taking her home medications of oxycodone twice daily and meloxicam and gabapentin without any relief and the pain is still severe and uncontrollable. The patient denies fevers, chills, chest pain, shortness of breath, nausea, or vomiting. The patient has not had any antibiotics or medical attention for this. The patient states this feels similar to when she had previous lower extremity cellulitis. The patient describes the pain as severe, pulsating and burning pain that does not radiate anywhere. The patient is very sensitive to new exposures and occasionally breaks out when exposed to incompletely washed clothes. In the emergency department, the patient was given Dilaudid and her home medications with absolutely no decrease in the patient's pain. The patient was afebrile, non-tachycardic, and saturating normally with a normal blood pressure in the emergency department. The patient also feels like she has urinary tract infection with burning with urination and urinary frequency as well as low back pain. Due to concern for intractable pain and lower extremity cellulitis, we were asked to evaluate the patient for admission to the hospital. PAST MEDICAL HISTORY: Morbid obesity; history of small bowel obstruction, status post exploratory laparotomy; pulmonary embolism; deep venous thrombosis in the left leg; lower extremity lymphedema; chronic lower extremity wounds; obstructive sleep apnea, on 2 L of oxygen at night; uterine cancer, status post resection. PAST SURGICAL HISTORY: Ventral hernia repair, cholecystectomy, appendectomy, exploratory laparotomy, hysterectomy. MEDICATIONS: 1. Gabapentin 100 mg p.o. t.i.d. 2. OxyContin 20 mg p.o. b.i.d. 3. Meloxicam 15 mg p.o. q.a.m. 4. Unknown diuretic, unknown dose every morning. ALLERGIES: No known drug allergies. FAMILY HISTORY: The patient's father of alcoholic cirrhosis. The patient' s mother of [place]. The patient has a sister with uterine cancer. The patient has another sister, who is alive and well. SOCIAL HISTORY: The patient denies smoking. The patient drinks alcohol socially. The patient denies illicit drug use. 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 The patient is and has 3 children. The patient's surrogate decision maker will be her daughter, Va. REVIEW OF SYSTEMS: A 14-point review of systems was reviewed with the patient and is negative except as above in the HPI. PHYSICAL EXAMINATION GENERAL: The patient is a 67-year-old female, who appears older than stated age and sitting in the bed, screaming loud in pain. VITAL SIGNS: At the time of evaluation, temperature 98.7, pulse rate 102, respiratory rate 22, oxygen saturation 97% on room air, blood pressure 149/90. HEENT: Head: Normocephalic, atraumatic. Sclerae anicteric. No conjunctival injection. Nasal mucosa moist. Oral mucosa moist. No pharyngeal erythema, discharge, or exudate. NECK: Supple, nontender. No lymphadenopathy. No carotid bruits auscultated. No JVD. RESPIRATORY: Clear to auscultation bilaterally. No wheezes, rales, or rhonchi. Good air exchange bilaterally. CARDIAC: Tachycardic. No clicks, murmurs, gallops, or rubs. Pulses are 2+ in the bilateral dorsalis pedis, posterior tibialis, and radial areas. A 2+ bilateral lower extremity edema, slightly worse on the left leg than the right. ABDOMEN: Soft, nontender, nondistended. Bowel sounds present and normoactive in all 4 quadrants. No hepato-splenomegaly. No abdominal bruits auscultated. No hepatojugular reflux. Large ventral hernia not easily reducible. GENITOURINARY: No suprapubic or CVA tenderness. NEURO: Cranial nerves II through XII intact. No focal deficits. Alert and oriented x3. PSYCHIATRIC: The patient is incredibly anxious and constantly screaming loud, but otherwise pleasant and cooperative. SKIN: Bilateral lower extremity wounds, circumferential redness with weeping, exposed granulation tissue, and subcutaneous edema. Left lower extremity edema with several scabbed open areas on the right lower extremity with changes consistent with lymphedema. No other rashes or ulcers. DIAGNOSTIC STUDIES/LAB DATA: White blood cell count 7.3, hemoglobin 12.4, platelet count 295. INR 1.02. Sodium 139, potassium 4.2, chloride 108, carbon dioxide 23, anion gap 8, BUN 18, creatinine 0.52, glucose 92, lactic acid 1.0, calcium 8.9. Bilirubin 0.3, AST 18, ALT 13, alkaline phosphatase 109. CRP 17.41. Protein 7.4, albumin 3.5, globulin 3.9. Urine: Yellow, clear, otherwise unremarkable. Studies: None. ASSESSMENT AND PLAN: Impression: Ms. Lynn is a 67-year-old female with history of morbid obesity, deep venous thrombosis, pulmonary embolism, lower extremity lymphedema with chronic wounds, obstructive sleep apnea, who presents to the emergency department with trauma to her left leg with likely associated cellulitis and severe uncontrolled pain. The patient will be admitted to the hospital for treatment of her cellulitis and pain control. 1. Left lower extremity cellulitis. The patient has a combination of trauma to the leg and what appears to be a reaction to the new skin product she used on top of lymphedemic changes and likely superimposed cellulitis as well. The patient will be admitted to the hospital. The patient will have a Wound Care consult. The patient will have pain control with Dilaudid, her home medications and increase in gabapentin. The patient will be seen in consultation by the Wound Clinic, who she has previously seen. The patient will be treated with clindamycin 300 mg orally 4 times daily to cover both staph and strep bacteria. The patient will have a swab of her leg to help narrow antibiotics if possible. Infectious Disease consultation should be considered if the patient does not improve. The patient should elevate the extremities as much as possible and will be started on Lasix 40 mg daily as it is unclear what her home diuretic is. The patient will also have Toradol for decrease in her inflammation to replace her Mobic. The patient refused a lower extremity Doppler ultrasound. The patient is at high risk. 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 The patient will not be anticoagulated at this time. The patient is not septic and has no signs of systemic infection. The patient had blood cultures drawn. The patient does not need a fluid bolus or dedicated broad-spectrum antibiotics. 2. History of deep venous thrombosis and pulmonary embolism. The patient is off anticoagulation. The patient will not be anticoagulated at this time. The patient will be on normal DVT prophylaxis, though she is high risk. 3. Obstructive sleep apnea. The patient has not had a sleep study yet, which should be done outpatient. The patient will have oxygen while in the hospital. 4. Lymphedema. The patient will be seen in consultation by the Wound Clinic and might benefit from a referral to a specialized lymphedema clinic. 5. DVT prophylaxis: As above with Lovenox. 6. Disposition: The patient will be admitted observation to the hospital for intractable pain and lower extremity cellulitis. 7. FEN: The patient will have a heart-healthy diet without caffeine. The patient does not need fluids. 8. Code status: The patient would like to be a full code. TIME SPENT: Approximately 60 minutes was spent on the admission of this patient , 30 of which was spent [id number] with the patient obtaining history and physical and discussing treatment plan. This plan was discussed with my attending, Dr. Merline Gallardo, and she is in agreement. ENIO REHMAN [id number]/[facility] #: [id number] EDWARDO
[2018-06-11] MEDS: Ketorolac INJ* 15 MG/ML 1 ML VIAL IV PUSH PRN (20:09)
[2018-06-11] MEDS: Gabapentin CAP(*) 100 MG PO SCH (20:10)
[2018-06-11 20:19] LABS: Erythrocyte Sed Rate 65 mm/Hr (0-29)
[2018-06-11] MEDS ORDERED: HYDROmorphone INJ1* 1 MG/ML SYRINGE IV SLOW PU ONE (20:23)
[2018-06-11] MEDS: Cephalexin CAP* 500 MG PO SCH (21:51)
[2018-06-12] MEDS: HYDROmorphone INJ1* 1 MG/ML SYRINGE IV SLOW PU PRN ×4 (00:32→16:24)
[2018-06-12] MEDS: Ketorolac INJ* 15 MG/ML 1 ML VIAL IV PUSH PRN ×2 (02:19→09:25)
[2018-06-12] MEDS: Acetaminophen TAB* 325 MG PO PRN (05:52)
[2018-06-12 09:17] LABS: ABS Basophils 0 10^3/ul (0-0.2); ABS Eosinophils 0.1 10^3/ul (0-0.6); ABS Lymphocytes 1.2 10^3/ul (1.0-4.8); ABS Monocytes 0.4 10^3/ul (0-0.8); ABS Neutrophils 4.8 10^3/ul (1.5-7.7); ABS Nucleated RBC 0 10^3/ul; Hematocrit 39 % (33-41); Hemoglobin 12.5 g/dL (12.0-16.0); Lymphocyte % 18.3 %; Mean Corpuscular HGB Conc 32 g/dL (31-36); Mean Corpuscular Hemoglobin 30 pg (27-31); Mean Corpuscular Volume 92 fL (80-97); Mean Platelet Volume 6.4 fL (7.4-10.4); Nucleated Red Blood Cells % 0; Platelet Count 297 10^3/uL (150-450); Red Blood Count 4.23 10^6 /uL (3.70-4.87); Red Cell Distribution Width 16 % (10.5-15); White Blood Count 6.5 10^3/uL (3.5-10.8)
--- NOTE | 2018-06-12 09:22 | PN ---
Subjective Interval History: No events overnight. On abx < 24 hours and still without systemic signs of infection. Micro resulted MSSA, so patient switched from oral clinda to Keflex. Erythema remains within marker drawn on skin, but pt reports that the redness "shot all the way up her leg" but reduced by the time I came in the room. Pt also denies receiving any pain medications despite "taking narcotics for my restless arm" as an outpatient. RN confirms that patient just received ketoralac and hydromorphone this morning - and per APR, has had 3 doses of ketoralac and 5 of hydromorphone in total since yesterday afternoon. Staff also notes that patient asked them not to tell her pain management doctor what medications she received in the hospital. Pt reporting severe pain now, to the point where she "has to scream" and "punch her meal tray". However, pt noted to appear very comfortable and was easily distracted from pain. She asks for "narcotics every 3 hours through the IV" and higher dosing. Of note she is also ordered for her home oxy SR 20mg q12h. Objective Active Medications: Acetaminophen (Tylenol Tab*) 650 mg PO Q6H PRN PRN Reason: FEVER/PAIN Last Admin: 06/12/18 05:52 Dose: 650 mg Cephalexin HCl (Keflex Cap*) 500 mg PO QID [facility] Last Admin: 06/12/18 16:19 Dose: 500 mg Enoxaparin Sodium (Lovenox(*)) 40 mg SUBCUT Q24H [facility] Last Admin: 06/12/18 16:20 Dose: 40 mg Furosemide (Lasix Tab*) 40 mg PO DAILY [facility] Last Admin: 06/12/18 09:26 Dose: 40 mg Gabapentin (Neurontin Cap(*)) 200 mg PO TID [facility] Last Admin: 06/12/18 13:03 Dose: 200 mg Hydromorphone HCl (Dilaudid Inj1s*) 1 mg IV SLOW PU Q4H PRN PRN Reason: PAIN - SEVERE Last Admin: 06/12/18 16:24 Dose: 1 mg Ketorolac Tromethamine (Toradol Inj*) 15 mg IV PUSH Q6H PRN PRN Reason: PAIN Last Admin: 06/12/18 09:25 Dose: 15 mg Nystatin (Nystatin Top Powder*) 1 applic TOPICAL BID [facility] Last Admin: 04/20/19 16:20 Dose: 1 applic Ondansetron HCl (Zofran Inj*) 4 mg IV Q6H PRN PRN Reason: NAUSEA Oxycodone HCl (Oxycontin(*)) 20 mg PO Q12HR [facility] Last Admin: 06/12/18 09:25 Dose: 20 mg Vital Signs - 8 hr 06/12/18 06/12/18 06/12/18 02:12 06:29 07:56 Temperature 99.5 F Pulse Rate 92 Respiratory 18 20 20 Rate Blood Pressure 129/54 (mmHg) O2 Sat by Pulse 90 Oximetry 06/12/18 08:13 Temperature 99.5 F Pulse Rate 92 Respiratory 20 Rate Blood Pressure 129/54 (mmHg) O2 Sat by Pulse 90 Oximetry Oxygen Devices in Use Now: Nasal Cannula Appearance: morbidly obese woman in no acute distress, alert and interactive Ears/Nose/Mouth/Throat: Mucous Membranes Moist Respiratory: Clear to Auscultation Cardiovascular: RRR Abdominal: - - obese Extremities: - - b/l LE with nonpitting edema, chronic stasis changes, skin breakdown with weeping of clear fluid, circumferential erythema L > R, LLE tender to palpation distally without purulence or crepitus Result Diagrams: 06/12/18 09:01 06/12/18 09:01 Microbiology and Other Data: Microbiology 06/11/18 16:43 Skin and Soft Tissue MRSA/MSSA (PCR - Final Ankle Left Mrsa Negative S.aureus Positive Gram Stain - Final Assess/Plan/Problems-Billing Assessment: 67W with morbid obesity, DVT/PE, LE lymphedema with chronic wounds, LAURA, who presents s/p L leg trauma with cellulitis, admitted for uncontrolled pain. Possible component of pain med seeking. - Patient Problems (1) Bilateral lower leg cellulitis Comment: MSSA. Improving. - cont Keflex - will cont Dilaudid 1mg q4h prn severe pain - Ketorolac for moderated pain prn - cont home oxy SR 20mg q12h - gapabentin increased to 200mg tid (2) Lymphedema of both lower extremities Comment: - cont furosemide - elevate legs (3) DVT prophylaxis Comment: - SQ heparin.
[2018-06-12] MEDS: oxyCODONE SR TAB(*) 20 MG TAB.SR PO SCH ×2 (09:25→19:24)
[2018-06-12] MEDS: Gabapentin CAP(*) 100 MG PO SCH ×3 (09:25→19:24)
[2018-06-12] MEDS: Cephalexin CAP* 500 MG PO SCH ×4 (09:26→19:23)
[2018-06-12] MEDS: Furosemide TAB* 40 MG PO SCH (09:26)
[2018-06-12 09:30] LABS: BUN/Creatinine Ratio 30.5 (8-20); Calcium 8.7 mg/dL (8.6-10.3); EGFR African American 123.8 (>60); EGFR Non-African American 102.3 (>60); Magnesium 1.8 mg/dL (1.9-2.7); Potassium 4.4 mmol/L (3.5-5.0)
[2018-06-12] MEDS ORDERED: Meloxicam(NF) 15 MG TAB PO ONE (13:14)
[2018-06-12] MEDS: Nystatin TOP POWDER* 15 GM BTL TOPICAL SCH ×2 (16:20→19:25)
[2018-06-12] MEDS: Enoxaparin(*) 40 MG/0.4 ML SYR SUBCUT SCH (16:20)
[2018-06-12] MEDS ORDERED: Magnesium Sulfate 1 GM IV* 1 GM/100 ML BAG IV ONE (18:29)
[2018-06-13] MEDS: HYDROmorphone INJ1* 1 MG/ML SYRINGE IV SLOW PU PRN ×4 (00:08→20:55)
[2018-06-13] MEDS: Cephalexin CAP* 500 MG PO SCH ×4 (08:42→21:18)
[2018-06-13] MEDS: Gabapentin CAP(*) 100 MG PO SCH ×3 (08:42→21:18)
[2018-06-13] MEDS: oxyCODONE SR TAB(*) 20 MG TAB.SR PO SCH ×2 (08:42→21:19)
[2018-06-13] MEDS: Furosemide TAB* 40 MG PO SCH (08:43)
[2018-06-13] MEDS: Ketorolac INJ* 15 MG/ML 1 ML VIAL IV PUSH PRN ×2 (08:47→18:23)
--- NOTE | 2018-06-13 14:23 | PN ---
Subjective Date of Service: 06/13/18 Interval History: Ms. Lynn is feeling a little better today, but reports her pain is still a 10/10. The pain is burning and located only on her left lower leg. She felt like the pain was improved somewhat last night, but had an incident where her leg rubbed against the sheet and the pain became worse again. She was resting quietly on my arrival and became more and more vocal about her pain the longed I was in the room. By the time I left the room she was yelling out in pain. No concerns from nursing. Family History: Unchanged from Admission Social History: Unchanged from Admission Past Medical History: Unchanged from Admission Objective Active Medications: Acetaminophen (Tylenol Tab*) 650 mg PO Q6H PRN FEVER/PAIN Cephalexin HCl (Keflex Cap*) 500 mg PO QID [facility] Enoxaparin Sodium (Lovenox(*)) 40 mg SUBCUT Q24H [facility] Furosemide (Lasix Tab*) 40 mg PO DAILY [facility] Gabapentin (Neurontin Cap(*)) 200 mg PO TID [facility] Hydromorphone HCl (Dilaudid Inj1s*) 1 mg IV SLOW PU Q8H PRN PAIN - SEVERE Ketorolac Tromethamine (Toradol Inj*) 15 mg IV PUSH Q6H PRN PAIN Lidocaine (Xylocaine 5% Oint*) 1 applic TOPICAL TID [facility]I Nystatin (Nystatin Top Powder*) 1 applic TOPICAL BID [facility] Ondansetron HCl (Zofran Inj*) 4 mg IV Q6H PRN NAUSEA Oxycodone HCl (Oxycontin(*)) 20 mg PO Q12HR [facility] Vital Signs - 8 hr 06/13/18 06/13/18 06/13/18 07:40 08:00 08:14 Temperature 98.5 F 98.5 F Pulse Rate 97 97 Respiratory 20 18 20 Rate Blood Pressure 132/52 132/52 (mmHg) O2 Sat by Pulse 93 93 Oximetry 06/13/18 06/13/18 06/13/18 08:42 11:15 11:26 Temperature 98.9 F Pulse Rate 92 Respiratory 18 18 21 Rate Blood Pressure 116/50 (mmHg) O2 Sat by Pulse 90 Oximetry Appearance: Middle-aged obese female laying in bed in NAD, but occasionally yelling out in pain Eyes: No Scleral Icterus Ears/Nose/Mouth/Throat: Mucous Membranes Moist Neck: NL Appearance and Movements; NL JVP, Trachea Midline Respiratory: Symmetrical Chest Expansion and Respiratory Effort, Clear to Auscultation Cardiovascular: NL Sounds; No Murmurs; No JVD, RRR Abdominal: NL Sounds; No Tenderness; No Distention Skin: - - Erythema BLE, L>R, but receding from demarcated area Neurological: Alert and Oriented x 3, NL Sensation Lines/Tubes/Other Access: Clean, Dry and Intact Peripheral IV Nutrition: Taking PO's Result Diagrams: 06/12/18 09:01 06/12/18 09:01 Assess/Plan/Problems-Billing Assessment: Ms. Lynn is a 67 yo F with PMH of morbid obesity, DVT/PE, LE lymphedema with chronic wounds, LAURA on 2L at HS; who presents s/p left leg trauma with resulting cellulitis, admitted for uncontrolled pain with possible component of pain med seeking. - Patient Problems (1) Bilateral lower leg cellulitis Code(s): L03.116 - CELLULITIS OF LEFT LOWER LIMB; L03.115 - CELLULITIS OF RIGHT LOWER LIMB Comment: - Resulting from injury sustained at home during a mechanical fall - Erythema improving, but continued pain to LLE - Wound culture growing MSSA - Start topical lidocaine ointment; continue Keflex, Cxycontin, gabapentin, Toradol; decrease frequency of Dilaudid (2) Lymphedema of both lower extremities Code(s): I89.0 - LYMPHEDEMA, NOT ELSEWHERE CLASSIFIED Comment: - Edema at baseline - Elevate legs while in bed - Continue furosemide (3) Chronic pain of right upper extremity Code(s): M79.601 - PAIN IN RIGHT ARM; G89.29 - OTHER CHRONIC PAIN Comment: - Pain at baseline - Follows [facility]. Moran [facility]; reportedly told nursing that she did not want the pain clinic to know she was receiving narcotics here in the hospital - Pain meds as above (4) History of pulmonary embolism Code(s): Z86.711 - PERSONAL HISTORY OF PULMONARY EMBOLISM Comment: - No evidence for acute DVT or PE - Not on anticoagulation; defer to PCP (5) LAURA (obstructive sleep apnea) Code(s): G47.33 - OBSTRUCTIVE SLEEP APNEA (ADULT) (PEDIATRIC) Comment: - 2L at HS (6) Morbid obesity Code(s): E66.01 - MORBID (SEVERE) OBESITY DUE TO EXCESS CALORIES Comment: - BMI 63 (7) DVT prophylaxis Comment: - Lovenox (8) Full code status Code(s): Z78.9 - OTHER SPECIFIED HEALTH STATUS Comment: Status and Disposition: Inpatient. Anticipate d/c home when medically stable. Attending: Marco Ohara
[2018-06-13] MEDS: Lidocaine 5% OINT TOPICAL SCH ×2 (14:37→22:16)
[2018-06-13] MEDS: Nystatin TOP POWDER* 15 GM BTL TOPICAL SCH ×2 (14:38→22:08)
[2018-06-13] MEDS: Enoxaparin(*) 40 MG/0.4 ML SYR SUBCUT SCH (17:29)
[2018-06-14] MEDS: Ketorolac INJ* 15 MG/ML 1 ML VIAL IV PUSH PRN ×2 (01:09→12:38)
[2018-06-14] MEDS: HYDROmorphone INJ1* 1 MG/ML SYRINGE IV SLOW PU PRN (06:30)
[2018-06-14] MEDS: Furosemide TAB* 40 MG PO SCH (08:13)
[2018-06-14] MEDS: oxyCODONE SR TAB(*) 20 MG TAB.SR PO SCH ×2 (08:13→20:51)
[2018-06-14] MEDS: Cephalexin CAP* 500 MG PO SCH ×4 (08:13→20:51)
[2018-06-14] MEDS: Gabapentin CAP(*) 100 MG PO SCH ×3 (08:13→20:50)
[2018-06-14] MEDS: Nystatin TOP POWDER* 15 GM BTL TOPICAL SCH ×2 (08:14→20:51)
[2018-06-14] MEDS: Lidocaine 5% OINT TOPICAL SCH ×3 (08:14→20:51)
--- NOTE | 2018-06-14 16:32 | PN ---
Subjective Date of Service: 06/14/18 Interval History: Ms. Lynn is still having significant LLE pain. She feels as though the lidocaine ointment is helping slightly. She does not feel she can return home in this condition and feels she will be back in the emergency room because she "gets yelling about the pain." I will note that she was sitting quietly in bed on my arrival and during the exam began yelling out more and more. She is requesting pain meds to return home with. She denies other complaints such as CP , SOB, N/V. She is eating lunch on my exam. No concerns from nursing. RN reports that she typical rates her pain 10/10 and the lowest it has gotten with pain medication is 8/10. Family History: Unchanged from Admission Social History: Unchanged from Admission Past Medical History: Unchanged from Admission Objective Active Medications: Acetaminophen (Tylenol Tab*) 650 mg PO Q6H PRN FEVER/PAIN Cephalexin HCl (Keflex Cap*) 500 mg PO QID [facility] Enoxaparin Sodium (Lovenox(*)) 40 mg SUBCUT Q24H [facility] Furosemide (Lasix Tab*) 40 mg PO DAILY [facility] Gabapentin (Neurontin Cap(*)) 200 mg PO TID [facility] Ketorolac Tromethamine (Toradol Inj*) 15 mg IV PUSH Q6H PRN PAIN Lidocaine (Xylocaine 5% Oint*) 1 applic TOPICAL TID [facility] Nystatin (Nystatin Top Powder*) 1 applic TOPICAL BID [facility] Ondansetron HCl (Zofran Inj*) 4 mg IV Q6H PRN NAUSEA Oxycodone HCl (Oxycontin(*)) 20 mg PO Q12HR [facility] Vital Signs - 8 hr 06/14/18 06/14/18 06/14/18 08:39 09:33 10:55 Temperature Pulse Rate Respiratory 16 16 Rate Blood Pressure (mmHg) O2 Sat by Pulse 90 Oximetry 06/14/18 06/14/18 12:13 14:43 Temperature 98.7 F Pulse Rate 93 Respiratory 18 18 Rate Blood Pressure 134/63 (mmHg) O2 Sat by Pulse 92 Oximetry Oxygen Devices in Use Now: None Appearance: Middle-aged obese female sitting in bed in NAD Eyes: No Scleral Icterus Ears/Nose/Mouth/Throat: Mucous Membranes Moist Neck: NL Appearance and Movements; NL JVP, Trachea Midline Respiratory: Symmetrical Chest Expansion and Respiratory Effort, Clear to Auscultation Cardiovascular: NL Sounds; No Murmurs; No JVD, RRR Abdominal: NL Sounds; No Tenderness; No Distention Skin: - - Erythema BLE, L>R, improved from demarcation Neurological: Alert and Oriented x 3 Lines/Tubes/Other Access: Clean, Dry and Intact Peripheral IV Nutrition: Taking PO's Result Diagrams: 06/12/18 09:01 06/12/18 09:01 Assess/Plan/Problems-Billing Assessment: Ms. Lynn is a 67 yo F with PMH of morbid obesity, DVT/PE, LE lymphedema with chronic wounds, LAURA on 2L at HS; who presents s/p left leg trauma with resulting cellulitis, admitted for uncontrolled pain with possible component of pain med seeking. - Patient Problems (1) Bilateral lower leg cellulitis Code(s): L03.116 - CELLULITIS OF LEFT LOWER LIMB; L03.115 - CELLULITIS OF RIGHT LOWER LIMB Comment: - Resulting from injury sustained at home during a mechanical fall - Erythema improving, but continued pain to LLE - Wound culture growing MSSA - Continue Keflex, Oxycontin, gabapentin, Toradol, lidocaine; d/c Dilaudid (2) Lymphedema of both lower extremities Code(s): I89.0 - LYMPHEDEMA, NOT ELSEWHERE CLASSIFIED Comment: - Edema at baseline - Elevate legs while in bed - Continue furosemide (3) Chronic pain of right upper extremity Code(s): M79.601 - PAIN IN RIGHT ARM; G89.29 - OTHER CHRONIC PAIN Comment: - Pain at baseline - Follows with Dr. Moran at [facility]; reportedly told nursing that she did not want the pain clinic to know she was receiving narcotics here in the hospital - Pain meds as above and she has been advised that she will not receive any narcotics at d/c; she will need to f/u with the pain clinic if she feels she needs additional medication (4) History of pulmonary embolism Code(s): Z86.711 - PERSONAL HISTORY OF PULMONARY EMBOLISM Comment: - No evidence for acute DVT or PE - Not on anticoagulation; defer to PCP (5) LAURA (obstructive sleep apnea) Code(s): G47.33 - OBSTRUCTIVE SLEEP APNEA (ADULT) (PEDIATRIC) Comment: - 2L at HS (6) Morbid obesity Code(s): E66.01 - MORBID (SEVERE) OBESITY DUE TO EXCESS CALORIES Comment: - BMI 63 (7) DVT prophylaxis Comment: - Lovenox (8) Full code status Code(s): Z78.9 - OTHER SPECIFIED HEALTH STATUS Comment: Status and Disposition: Inpatient. She is stable for d/c, but has appealed. Case Management involved. Attending: Marco Ohara
[2018-06-14] MEDS: Enoxaparin(*) 40 MG/0.4 ML SYR SUBCUT SCH (17:09)
[2018-06-15] MEDS: Ketorolac INJ* 15 MG/ML 1 ML VIAL IV PUSH PRN (01:28)
[2018-06-15] MEDS ORDERED: Ibuprofen TAB* 600 MG ONE (01:48)
[2018-06-15] MEDS: Ibuprofen TAB* 600 MG PO PRN ×3 (01:49→19:02)
[2018-06-15] MEDS: Furosemide TAB* 40 MG PO SCH (07:48)
[2018-06-15] MEDS: Cephalexin CAP* 500 MG PO SCH ×4 (07:48→21:00)
[2018-06-15] MEDS: Gabapentin CAP(*) 100 MG PO SCH ×3 (07:50→21:00)
[2018-06-15] MEDS: oxyCODONE SR TAB(*) 20 MG TAB.SR PO SCH ×2 (07:51→21:00)
[2018-06-15] MEDS: Acetaminophen TAB* 325 MG PO PRN ×2 (07:52→15:44)
[2018-06-15] MEDS: Lidocaine 5% OINT TOPICAL SCH ×4 (07:54→21:01)
[2018-06-15] MEDS: Nystatin TOP POWDER* 15 GM BTL TOPICAL SCH ×2 (07:55→21:01)
--- NOTE | 2018-06-15 13:37 | CONSULT ---
Subjective Date of Service: 06/15/18 Interval History: Ms. Lynn is a 67 yo female with PMH significant for morbid obesity, bilateral LE lympedema, PE, LAURA, hx left LE DVT, and hx LE wounds. Who presented to the hospital with complaints of open areas to the her left leg. She originally had an injury to the left leg when an object fell in her house hiting the back of her leg and causing the front of her leg to hit something else. She called [facility] who recommended that she apply Nu Skin to the area, this caused increased pain and blistering of the area. She states that she developed LE wounds 2 days ago. She states that she has had bilateral LE wounds in the past, and had VNS to help with the dressing changes. Patient seen and examined at bedside. Family History: Unchanged from Admission Social History: Unchanged from Admission Past Medical History: Unchanged from Admission Review of Systems - Measurements Intake and Output: Intake and Output Last 24 Hours 06/13/18 06/14/18 06/15/18 06/16/18 06:59 06:59 06:59 06:59 Intake Total 1510 1909 2039 620 Balance 1510 0 0 620 Intake: IV Fluids 110 Oral 1400 1909 2039 620 Other: Estimated Void Medium Medium Date of Last Bowel unknown [id number] 06/13/18 Movement # Bowel Movements 0 0 1 Estimated Stool Amount Large # Voids 4 0 3 - Review of Systems Constitutional Symptoms: Negative: Fever, Other - Chills Dermatology: Positive: Skin Lesions Endocrinology: Positive: Obesity Objective Active Medications: Acetaminophen (Tylenol Tab*) 650 mg PO Q6H PRN Reason: FEVER/PAIN Cephalexin HCl (Keflex Cap*) 500 mg PO QID [facility] Enoxaparin Sodium (Lovenox(*)) 40 mg SUBCUT Q24H [facility] Furosemide (Lasix Tab*) 40 mg PO DAILY [facility] Gabapentin (Neurontin Cap(*)) 200 mg PO TID [facility] Ibuprofen (Motrin Tab*) 600 mg PO Q8H PRN Reason: PAIN Lidocaine (Xylocaine 5% Oint*) 1 applic TOPICAL TID DAVI Nystatin (Nystatin Top Powder*) 1 applic TOPICAL BID DAVI Ondansetron HCl (Zofran Inj*) 4 mg IV Q6H PRN Reason: NAUSEA Oxycodone HCl (Oxycontin(*)) 20 mg PO Q12HR [facility] Vital Signs 06/15/18 06/15/18 06/15/18 07:15 07:50 07:51 Temperature 97.5 F Pulse Rate 76 Respiratory 20 20 20 Rate Blood Pressure 119/89 (mmHg) O2 Sat by Pulse 91 Oximetry Oxygen Devices in Use Now: None Appearance: NAD, sitting up on the side of the bed Ears/Nose/Mouth/Throat: Mucous Membranes Moist Respiratory: Symmetrical Chest Expansion and Respiratory Effort Skin: - - See skin note below Neurological: Alert and Oriented x 3 Nutrition: Taking PO's Result Diagrams: 06/12/18 09:01 06/12/18 09:01 Microbiology and Other Data: Microbiology 06/11/18 16:43 Skin and Soft Tissue MRSA/MSSA (PCR - Final Ankle Left Mrsa Negative S.aureus Positive Gram Stain - Final Skin Deviation Note - Skin Deviation Findings Left lateral LE - There is erythema and crusting noted to the area. No open areas seen. Left medial LE - There is erythema and crusting noted to the area. No open areas seen. The area is circumferential around the leg, but measures 17 cm high. Right lateral Leg - There is erythema to the lower leg. There is also a small area with scabs to the lateral/posterior lower leg. There is no drainage noted. Abdominal fold with erythema and foul smell. The area is moist. Assessment/Plan: Ms. Lynn is a 67 yo female with PMH significant for morbid obesity, bilateral LE lymphedema, PE, LAURA, hx left LE DVT, and hx LE wounds. Who presented to the hospital with complaints of open areas to the her left leg. She originally had an injury to the left leg when an object fell in her house hitting the back of her leg and causing the front of her leg to hit something else. She called [facility] who recommended that she apply Nu Skin to the area, this caused increased pain and blistering of the area. 1. Bilateral LE lymphedema with chronic wounds. Recommend washing legs with soap and water daily. Leave open to air. If the wounds have drainage, apply dry dressing and change daily. She could be referred to the wound clinic as an outpatient for further evaluation regarding her chronic wounds. She may also benefit from referral to a lymphedema center, id she has not previously been there. Continue current treatment for cellulitis. Could consider ABIs outpatient to assess circulation and the ability to apply compression to the legs as there may be a component of venous stasis. 2. Abdominal fold candidiadis. Recommend washing the area with soap and water daily, pat dry. Apply Nystatin powder and a pillow case for absorption of moisture. 3. Morbid obesity. BMI ~ 63 4. Diet. Heart healthy 5. Code Status. Full Code 6. Disposition. Inpatient, disposition per primary medicine team. TIME SPENT: Time for this wound consultation was 25 minutes and 15 minutes was spent with the patient discussing past medical history; assessing, measuring and photographing the wounds. Wound Problem/Plan Is Patient a Wound Clinic Patient: No Attending: Maude Pendleton
[2018-06-15] MEDS: Enoxaparin(*) 40 MG/0.4 ML SYR SUBCUT SCH (17:46)
--- NOTE | 2018-06-15 18:40 | PN ---
Subjective Interval History: Patient's appeal of her discharge was denied. She is in agreement to go home tomorrow, and has arranged for her own transportation. Her leg xray was without gas or bony abnormalities. Her leg erythema has significantly improved since admission on PO Keflex. She was seen and evaluated by the wound team today, who recommended daily water and soap washes of her LEs. Pt still stating she needs to "scream" because of her severe pain, despite notably comfortable-looking and easily distracted. Again asks for "narcotics through the IV." Discussed that we will not change her pain regimen. Family History: Unchanged from Admission Social History: Unchanged from Admission Past Medical History: Unchanged from Admission Objective Active Medications: Acetaminophen (Tylenol Tab*) 650 mg PO Q6H PRN PRN Reason: FEVER/PAIN Last Admin: 06/15/18 15:44 Dose: 650 mg Cephalexin HCl (Keflex Cap*) 500 mg PO QID [facility] Last Admin: 06/15/18 17:45 Dose: 500 mg Enoxaparin Sodium (Lovenox(*)) 40 mg SUBCUT Q24H [facility] Last Admin: 06/15/18 17:46 Dose: 40 mg Furosemide (Lasix Tab*) 40 mg PO DAILY [facility] Last Admin: 06/15/18 07:48 Dose: Not Given Gabapentin (Neurontin Cap(*)) 200 mg PO TID [facility] Last Admin: 06/15/18 13:12 Dose: 200 mg Ibuprofen (Motrin Tab*) 600 mg PO Q8H PRN PRN Reason: PAIN Last Admin: 06/15/18 11:42 Dose: 600 mg Lidocaine (Xylocaine 5% Oint*) 1 applic TOPICAL TID [facility] Last Admin: 06/15/18 13:14 Dose: 1 applic Nystatin (Nystatin Top Powder*) 1 applic TOPICAL BID [facility] Last Admin: 06/15/18 07:55 Dose: 1 applic Ondansetron HCl (Zofran Inj*) 4 mg IV Q6H PRN PRN Reason: NAUSEA Oxycodone HCl (Oxycontin(*)) 20 mg PO Q12HR [facility] Last Admin: 06/15/18 07:51 Dose: 20 mg Vital Signs - 8 hr 06/15/18 06/15/18 06/15/18 10:54 10:59 11:00 Temperature Pulse Rate Respiratory 20 20 20 Rate Blood Pressure (mmHg) O2 Sat by Pulse Oximetry 06/15/18 06/15/18 06/15/18 12:00 13:12 15:28 Temperature 98.0 F 97.8 F Pulse Rate 77 87 Respiratory 18 20 20 Rate Blood Pressure 149/69 142/61 (mmHg) O2 Sat by Pulse 97 91 Oximetry 06/15/18 15:49 Temperature Pulse Rate Respiratory 20 Rate Blood Pressure (mmHg) O2 Sat by Pulse Oximetry Oxygen Devices in Use Now: None Appearance: well appearing, not in acute distress until she notices this investigative writer' s approach Extremities: - - LE swelling and erythema significantly improved, mild weeping on L Result Diagrams: 06/12/18 09:01 06/12/18 09:01 Microbiology and Other Data: Microbiology 06/11/18 16:43 Skin and Soft Tissue MRSA/MSSA (PCR - Final Ankle Left Mrsa Negative S.aureus Positive Gram Stain - Final Assess/Plan/Problems-Billing Assessment: Ms. Lynn is a 67W w morbid obesity, DVT/PE not on AC, LE lymphedema with chronic wounds, LAURA on 2L at HS; who presents s/p left leg trauma with resulting cellulitis, admitted for uncontrolled pain with possible component of pain med seeking. - Patient Problems (1) Bilateral lower leg cellulitis Comment: - Resulting from injury sustained at home during a mechanical fall - Erythema improving, but continued pain to LLE - Wound culture growing MSSA - Continue Keflex, Oxycontin, gabapentin, Toradol, lidocaine; d/c Dilaudid (2) Lymphedema of both lower extremities Comment: - Edema at baseline - Elevate legs while in bed - Continue furosemide (3) DVT prophylaxis Comment: - Lovenox (4) Hannah infection of flexural skin Comment: nystatin powder, keep folds dry Status and Disposition: Inpatient. She is stable for d/c, but has appealed. Case Management involved.
[2018-06-16] MEDS: Acetaminophen TAB* 325 MG PO PRN (06:10)
[2018-06-16] MEDS: Ibuprofen TAB* 600 MG PO PRN (06:10)
[2018-06-16] MEDS: Cephalexin CAP* 500 MG PO SCH (08:46)
[2018-06-16] MEDS: Furosemide TAB* 40 MG PO SCH (08:46)
[2018-06-16] MEDS: oxyCODONE SR TAB(*) 20 MG TAB.SR PO SCH (08:47)
[2018-06-16] MEDS: Gabapentin CAP(*) 100 MG PO SCH (08:47)
[2018-06-16] MEDS: Lidocaine 5% OINT TOPICAL SCH (08:50)
[2018-06-16] MEDS: Nystatin TOP POWDER* 15 GM BTL TOPICAL SCH (08:50)
[2018-06-16 09:04] VITALS: BP 148/72
[2018-06-16] MEDS ORDERED: Cephalexin CAP* 500 MG PO ONE (10:15)
--- NOTE | 2018-06-17 00:01 | DS ---
CC: Dr. Kimball; Dr. Moran* DISCHARGE SUMMARY: DATE OF ADMISSION: 06/11/18 DATE OF DISCHARGE: 06/16/18 PRIMARY CARE PHYSICIAN: Dr. Kimball. PAIN PROVIDER: Dr. Moran. DISPOSITION: Home. CONDITION: Good. PRIMARY DIAGNOSIS: Cellulitis and pain med seeking. SECONDARY DIAGNOSES: 1. Morbid obesity. 2. Lower extremity lymphedema. 3. Deep venous thrombosis, pulmonary embolism, not on ASA. 4. Obstructive sleep apnea, on 2 L oxygen at night. CONSULTS: Wound Care. HISTORY OF PRESENT ILLNESS: Ms. Lynn is a 67-year-old woman with morbid obesity, lower extremity lymphedema complicated by chronic wounds, pulmonary embolism, not on AC, and obstructive sleep apnea, who is presenting to the emergency department 2 days after her cat tree fell and hit the back of her leg which then knocked the front of her leg into her walker creating 2 open areas in her skin. The patient had immediate pain and called [facility] and was recommended to apply Nu Skin to the area; however, when the patient applied Nu Skin to the area, she had an immediate increase in her pain with exfoliation and blistering of the area. The patient states she has been taking her home medications of oxycodone twice daily, meloxicam, and gabapentin without any relief and the pain is still severe and uncomfortable. She denies fevers, chills, chest pain, shortness of breath, nausea, or vomiting. She has not had any antibiotics or medical attention for this, but thinks it feels similar to when she previously had cellulitis in her legs. The pain she describes as severe, pulsating, and burning without radiating anywhere. HOSPITAL COURSE: In the emergency room, the patient was given Dilaudid plus her home pain medications with no decrease in her pain. She was found afebrile and nontachycardic without leukocytosis with normal oxygen, respiration, and blood pressure. Given reportedly irretractable pain, the patient was admitted to Medicine for pain control. The patient was noted to ask RN to not disclose which narcotic she was getting in the hospital to her pain provider. She repeatedly asked for pain medications and "narcotics through the IV every 3 hours." She was frequently observed very comfortable, but would appear agitated and anxious when she noted providers were approaching her. She would state "she has to scream because of the pain" and that also "she has to punch a meal tray" because of the pain. Her wound swab resulted MSSA, so she was transitioned from oral clindamycin to oral Keflex to treat her lower extremity cellulitis which improved throughout her hospitalization with erythema quickly retreating and swelling improving in her lower extremities. She was deemed ready for discharge by day 3 of her admission, but she appealed and her discharge was subsequently denied. She agreed to leave the hospital by the next day and arranged her own transportation. PHYSICAL EXAMINATION: The patient remained afebrile, heart rate 80s, respiratory rate 12, blood pressure 146/72, oxygen saturation 95% on room air. General: Appears older than stated age, obese, oddly related. HEENT: Moist mucous membranes. Cardiac: Regular rate and rhythm. No murmurs, gallops, rubs. Lungs: Clear to auscultation bilaterally. Abdomen: Soft, nontender, and nondistended. Lower extremity with chronic venous stasis changes with bilateral lower extremity chronic wounds with slight weeping on the left. No pus. Erythema significantly retreated within marker line. DIAGNOSTIC/LAB STUDIES: Microbiology with Staph aureus sensitive to methicillin , clindamycin, doxycycline, Bactrim, vancomycin, Augmentin, and cephazolin. Lower extremity x-ray left tib-fib with osteopenia, osteoarthritis, no acute osseous injury. DISCHARGE PLAN: The patient is to follow up with her primary care physician. She was also referred to a wound clinic. She was instructed to continue her home medications as listed above with the addition of 4 more days of cephalexin 500 mg 4 times a day, furosemide 40 mg daily, lidocaine topical ointment for her lower extremity wounds. Her gabapentin dose was increased to 200 mg twice a day and she was prescribed nystatin powder for likely candidal infection in her abdominal folds. TIME SPENT: Approximately 60 minutes spent on discharge of this patient, more than half of which was spent with care, coordination, or at bedside for interview and exam. [id number]/[facility] #: [id number] MTDD
== END 2018-06-16 10:50 | disposition home or self-care (01) | DRG 603 ==
LOC: ED 11:25 → MED 16:15 → OBSVTOIN 06-13 14:24
PROVIDERS: ADMIT Internal Medicine; ATTEND Internal Medicine
DX: L03.116 Cellulitis of left lower limb (principal); Z68.44 Body mass index [BMI] 60.0-69.9, adult; S81.812A Laceration without foreign body, left lower leg, initial encounter; W20.8XXA Other cause of strike by thrown, projected or falling object, initial encounter; B95.61 Methicillin susceptible Staphylococcus aureus infection as the cause of diseases classified elsewhere; E66.01 Morbid (severe) obesity due to excess calories; I89.0 Lymphedema, not elsewhere classified; L03.115 Cellulitis of right lower limb; G47.33 Obstructive sleep apnea (adult) (pediatric); T50.995A Adverse effect of other drugs, medicaments and biological substances, initial encounter; B37.2 Candidiasis of skin and nail; K43.9 Ventral hernia without obstruction or gangrene; M85.862 Other specified disorders of bone density and structure, left lower leg; M17.12 Unilateral primary osteoarthritis, left knee; Y92.009 Unspecified place in unspecified non-institutional (private) residence as the place of occurrence of the external cause; Z99.81 Dependence on supplemental oxygen; Z86.718 Personal history of other venous thrombosis and embolism; Z86.711 Personal history of pulmonary embolism; Z85.42 Personal history of malignant neoplasm of other parts of uterus; Z79.891 Long term (current) use of opiate analgesic; Z79.899 Other long term (current) drug therapy; Z81.1 Family history of alcohol abuse and dependence; Z83.79 Family history of other diseases of the digestive system; Z82.49 Family history of ischemic heart disease and other diseases of the circulatory system; Z80.49 Family history of malignant neoplasm of other genital organs; G89.29 Other chronic pain
CPT/HCPCS: 36415; 80048; 80053; 81003; 83605; 83735; 85025; 85610; 85652; 86140; 87040; 87070; 87077; 87186; 87205; 87640; 87641; 99284; A9270-GY; G0378; G8978-GP-CI; G8979-GP-CH; G8987-GO-CI; G8988-GO-CI; G8989-GO-CI; J1170; J1650; J1885; J3475